=== PATIENT | female | born 2000 | race Caucasian/White ===

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

== ENCOUNTER 2020-03-10 17:22 | Emergency (ER) | payer OTHER ==
[2020-03-10] MEDS ORDERED: Lidocaine 1% 10 ML MDV INJECT ONE (17:47)
--- NOTE | 2020-03-10 18:02 | EDM.PDOC ---
ED HPI GENERAL MEDICAL PROBLEM - General Chief Complaint: Laceration Stated Complaint: LEFT HAND FINGER LAC Time Seen by Provider: 03/10/20 17:40 Source of Information: Reports: Patient History Limitations: Reports: No Limitations - History of Present Illness INITIAL COMMENTS - FREE TEXT/NARRATIVE: The patient presents with a laceration to her left index finger. She was cuttin g onions and cut her finger. She is right handed. Her tetanus is up to date. Onset: Sudden Duration: Minutes: Location: Reports: Upper Extremity, Left (index finger) Quality: Reports: Sharp Severity: Mild Improves with: Reports: None Worsens with: Reports: None Associated Symptoms: Reports: No Other Symptoms - Related Data Allergies Allergy/AdvReac Type Severity Reaction Status Date / Time No Known Allergies Allergy Verified 03/10/20 17:36 Home Meds: Home Meds . [No Known Home Meds] 03/10/20 [History] Past Medical History - Past Health History Medical/Surgical History: Denies Medical/Surgical History Other HEENT History: Was treated with 5 days of prednisone orally for a pharyngitis last week apparently she had significant tonsillitis with negative strep screen. 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: Social & Family History - Family History Family Medical History: No Pertinent Family History - Tobacco Use Tobacco Use Status *Q: Never Tobacco User - Recreational Drug Use Recreational Drug Use: No - Living Situation & Occupation Living situation: Reports: with Family Occupation: Student ED ROS GENERAL - Review of Systems Review Of Systems: See Below Constitutional: Reports: No Symptoms HEENT: Reports: No Symptoms Respiratory: Reports: No Symptoms Cardiovascular: Reports: No Symptoms Endocrine: Reports: No Symptoms GI/Abdominal: Reports: No Symptoms : Reports: No Symptoms Musculoskeletal: Reports: Other (Laceration left index finger) ED EXAM, SKIN/RASH Exam: See Below Exam Limited By: No Limitations General Appearance: Alert, No Apparent Distress Ears: Normal External Exam Nose: Normal Inspection Head: Atraumatic, Normocephalic Neck: Normal Inspection Respiratory/Chest: No Respiratory Distress Extremities: Other (3cm eliptical laceration to the side of the left index finger.) ED SKIN PROCEDURES - Laceration/Wound Repair Left Digit - 2nd (Index) Appearance: Subcutaneous, Irregular, Clean Distal NVT: Neuro & Vascular Intact, No Tendon Injury Anesthetic Type: Local Local Anesthesia - Lidocaine (Xylocaine): 1% Plain Skin Prep: Saline Exploration/Debridement/Repair: Wound Explored, In a Bloodless Field, Explored to Base Closed with: Sutures Lac/Wound length In cm: 3 Suture Size: 4-0 # of Sutures: 3 Suture Type: Nylon, Interrupted, Simple Tetanus Status Addressed: Yes Complications: No Course - Vital Signs Last Recorded V/S: Last Vital Signs Temp 98.1 F 03/10/20 17:37 Pulse 74 03/10/20 17:37 Resp 16 03/10/20 17:37 BP 124/74 03/10/20 17:37 Pulse Ox 98 03/10/20 17:37 - Orders/Labs/Meds Meds: Medications Discontinued Medications Generic Name Dose Route Start Last Admin Trade Name Robinson PRN Reason Stop Dose Admin Lidocaine HCl 10 ml 03/10/20 17:47 Xylocaine 1% INJECT 03/10/20 17:48 ONETIME ONE - Re-Assessments/Exams Free Text/Narrative Re-Assessment/Exam: 03/10/20 18:03 I sutured the laceration. Departure - Departure Time of Disposition: 18:05 Disposition: Home, Self-Care 01 Condition: Good Clinical Impression: Laceration of left index finger Qualifiers: Encounter type: initial encounter Damage to nail status: without damage Foreign body presence: without foreign body Qualified Code(s): S61.211A - Laceration without foreign body of left index finger without damage to nail, initial encounter - Discharge Information *PRESCRIPTION DRUG MONITORING PROGRAM REVIEWED*: Not Applicable *COPY OF PRESCRIPTION DRUG MONITORING REPORT IN PATIENT ELANA: Not Applicable Referrals: PCP,None [Primary Care Provider] - Additional Instructions: Soak your finger in warm soapy water 2 times per day and apply antibiotic ointment after. Have the sutures removed within a week. Look for any signs of infection such as redness, swelling, pain or drainage. If you see any of these signs please return or see your doctor. You may need oral antibiotics. Sepsis Event Note (ED) - Evaluation Sepsis Screening Result: No Definite Risk - Focused Exam Vital Signs: Vital Signs Temp Pulse Resp BP Pulse Ox 03/10/20 17:37 98.1 F 74 16 124/74 98
== END 2020-03-10 18:10 | disposition home or self-care (01) ==
LOC: JD.ED 17:22
DX: S61.211A Laceration without foreign body of left index finger without damage to nail, initial encounter (principal); W26.0XXA Contact with knife, initial encounter
CPT/HCPCS: 12002; 99282; J2001

== ENCOUNTER 2020-07-29 06:57 | Inpatient (IN) | payer BC ==
--- NOTE | 2020-07-29 19:41 | PCM.LDHP ---
L&D History of Present Illness - General Date of Service: 07/30/20 Admit Problem/Dx: Admission Diagnosis/Problem Admission Diagnosis/Problem 07/29/20 19:28 Vicki amaro is a 20-year-old 1 para 0 white female who is to be admitted on the early a.m. of 07/30/2020 at 37-1/7 weeks gestational age with an BECKI of 08/19/2020 for a medical induction of labor for a significant size less than dates discrepancy. Source of Information: Patient History Limitations: Reports: No Limitations - History of Present Illness Introduction:: Vicki amaro is a 20-year-old 1 para 0 white female who is to be admitted on the early a.m. of 07/30/2020 at 37-1/7 weeks gestational age with an BECKI of 08/19/2020 for a medical induction of labor for a significant size less than dates discrepancy. The medical condition of size less than dates discrepancy is well-known to the patient and has been discussed on many occasions with the patient by Dr. Tate her MFM and myself. The process of induction of labor, its risks, benefits and the timing of the induction are discussed in labor in view of her diagnosis. She appears to understand and wishes to proceed. 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 Patient had menarche at age 13. Cycles are regular with her last definite period started 11/05/2019 with the patient on no control at the time of conception. Cycles are regular on a q. monthly basis. Patient has not had a Pap smear prior to this. She denies any STIs. course: Patient is BECKI of 08/19/2020 is set by an ultrasound done on 01/02/2020 at 7-1/7 weeks gestational age. Subchorionic hematoma was noted at that time patient was evaluated with multiple ultrasounds throughout the course of the and evaluation of her size less than dates discrepancy. In general they showed A baby at less than dates and size but with relatively normal growth interval. Last ultrasound performed showed growth at less than 3rd percentile and biophysical profile was done on q. 1-2 times per week basis showed scores of 8/8. Patient was seen on a very frequent basis by both her MFM Dr. Tate and myself. She had a prequel noninvasive screen performed which returned negative. Her group B strep screen is negative. Recommended date of induction is between 37 and 38 weeks. She has a history of hypothyroidism which did not affect her . Follow-up TSH on 06/21/2020 was normal. She has had some depression during and has been on sertraline during the course of her latter part of the . Weight gain during the course of the was from 129 to 154.7 pounds. Vital signs are stable. Fundal height growth was lagging as was supported by her ultrasound showing a size less than dates discrepancy. Vicki had her Tdap on 06/21/2020. She is rubella immune. Varicella titer showed immunity. Hepatitis B immunization occurred in 2004. Hepatitis A in 2018. HPV in 2019. She had her pneumococcal immunizations in 2000 and her meningococcal immunizations in 2018. Laboratory testing in shows her blood to be all positive with a negative antibody screen. First labs showed a hemoglobin of 12.2 g/dL. Platelets are 223,000. She is rubella and varicella immune. RPR is nonreactive. Urine culture was unremarkable. Hepatitis B surface antigen and HIV assays were both negative. Gonorrhea and Chlamydia were both negative. Her TSH on 01/15/2020 was mildly elevated at 4.82 mg/mL. Second trimester labs showed a hemoglobin 12.0 g/dL and platelets at 236,000. Her 1 hour GTT was normal at 110. Follow-up he is done on 06/21/2020 were normal with a free T4 of 0.92 and a TSH of 2.104. Group B strep screen was negative. RPR 05/17/2020 was negative. Allergies: None Medications: 1. vitamins 1 daily 2. Sertraline 50 mg p.o. daily Past medical history: Unremarkable Past surgical history: Unremarkable Family history: Mother is alive and well as is her father. Paternal grandfather is alive and well as is paternal grandmother. Maternal grandfather is alive and well. Maternal grandmother has multiple comorbidities but patient did not know details concerning these. She has 2 younger brothers who are both healthy. No anesthesia, bleeding, blood clotting problems noted in the family. Review of systems: In general patient has no complaints. She has reported good activity. No significant contractions noted. Skin: Negative Lungs: No infectious symptoms or shortness of breath Cardiovascular: No chest pain or exercise intolerance Breasts: No lumps, changes in size, pain, dimpling, discharge or axillary or supraclavicular concerns. changes noted. GI: Negative : changes noted. Musculoskeletal: Negative Neurological: Negative Physical exam: In general the patient is well-developed, well-nourished, pleasant female of stated age in no acute distress. On last evaluation clinic patient's weight was 154.7. Height is 5 feet 5. Prepregnancy body mass index is 20. Prepregnancy weight was 129. Skin is warm dry without lesions. HEENT, neck and back within normal limits. Lungs are clear with good breath sounds in all lung sloan. Cardiovascular exam shows regular and rhythm without murmurs. Breast exam done at first visit was found to be normal and is not repeated at this time. Abdomen is gravid with last fundal height at 32.5 cm. Baby in a vertex presentation by Kole maneuvers. Genital exam shows cervix to be closed, firm, -3 station and posterior.. Extremities and neurological exam are grossly within normal limits. - Related Data Allergies/Adverse Reactions: Allergies Allergy/AdvReac Type Severity Reaction Status Date / Time No Known Allergies Allergy Verified 05/21/20 19:31 Home Medications: Home Meds Vits #93/Iron Fum/FA [ Formula Tablet] 1 05/21/20 [History] Sertraline [Zoloft] 50 mg PO BEDTIME 05/21/20 [History] Past Medical History - Past Health History Medical/Surgical History: Denies Medical/Surgical History Other HEENT History: Was treated with 5 days of prednisone orally for a pharyngitis last week apparently she had significant tonsillitis with negative strep screen. 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: Social & Family History - Family History Family Medical History: No Pertinent Family History - Living Situation & Occupation Living situation: Reports: with Family Occupation: Student H&P Review of Systems - Review of Systems: Review Of Systems: See Below L&D Exam - Exam Exam: See Below - Problem List (1) Size of fetus inconsistent with dates in third trimester SNOMED Code(s): 197754408, 137892297 ICD Code: O26.843 - UTERINE SIZE-DATE DISCREPANCY, THIRD TRIMESTER Status: Acute (2) 37 weeks gestation of SNOMED Code(s): 56452407 ICD Code: Z3A.37 - 37 WEEKS GESTATION OF Status: Acute Problem List Initiated/Reviewed/Updated: Yes Assessment/Plan Comment:: 1.Vicki amaro is a 20-year-old 1 para 0 white female who is to be admitted on the early a.m. of 07/30/2020 at 37-1/7 weeks gestational age with an BECKI of 08/19/2020 for a medical induction of labor for a significant size less than dates discrepancy. 2. Group B strep screen negative 3. Patient plans to attempt breast-feeding. 4. Depression history patient on sertraline and doing well. 5. Patient up-to-date regarding her immunizations. She is rubella immune. RPR is nonreactive. Tdap up-to-date. 6. Patient is okay with analgesia and labor, specifically epidural. . Patient has O+ blood Plan: 1. Medical induction of labor for size significantly less than dates discrepancy. The procedure, risk, benefits, possible inability of the baby to tolerate the stress of labor because of size less than grates discrepancy all discussed with patient. She appears understand and wishes to proceed. 2. Near continuous electronic monitoring during labor 3. Epidural as needed for pain control 4. Support breast-feeding decision 5. Pediatrics has been informed of the induction. 6. Routine admission labs including Covid19, CBC, RPR.
[2020-07-30] MEDS ORDERED: Nalbuphine 10 MG/1 ML Vial IVPUSH PRN (00:17)
[2020-07-30] MEDS ORDERED: Ondansetron 4 MG/2 ML SDV IVPUSH PRN (00:17)
[2020-07-30] MEDS ORDERED: Sodium Chloride 0.9% 10 ML Syringe FLUSH PRN (00:17)
[2020-07-30] MEDS ORDERED: Oxytocin/Lactated Ringers 10 UNIT/1,000 ML BAG IV SCH ×2 (00:30)
[2020-07-30] MEDS: Lactated Ringers 1,000 ML IV SCH ×6 (00:43→21:03)
[2020-07-30] MEDS ORDERED: diphenhydrAMINE 50 MG/ML SDV IVPUSH PRN (07:27)
[2020-07-30] MEDS ORDERED: fentaNYL 100 MCG/2 ML SDV EPIDUR PRN (07:27)
[2020-07-30] MEDS ORDERED: ePHEDrine 50 MG/ML SDV IVPUSH PRN (07:27)
[2020-07-30] MEDS: Oxytocin/Lactated Ringers 20 UNIT/1,000 ML BAG IV SCH (15:15)
--- NOTE | 2020-07-30 19:26 | PCM.PREANE ---
Preanesthetic Assessment - Procedure Proposed Procedure: mike - Anesthesia/Transfusion/Family Hx Anesthesia History: No Prior Anesthesia Family History of Anesthesia Reaction: No Transfusion History: No Prior Transfusion(s) - Review of Systems General: No Symptoms Pulmonary: No Symptoms Cardiovascular: No Symptoms Gastrointestinal: No Symptoms Neurological: No Symptoms Other: Reports: Depression - Physical Assessment Vital Signs: Last Vital Signs Temp 98.8 F 07/30/20 00:15 Pulse 80 07/30/20 00:15 Resp 16 07/30/20 00:15 BP 126/74 07/30/20 00:15 Pulse Ox 100 07/30/20 00:15 Height: 5 ft 6 in Weight: 69.944 kg ASA Class: 2 Mental Status: Alert & Oriented x3 Airway Class: Mallampati = 1 Dentition: Reports: Normal Dentition Thyro-Mental Finger Breadths: 3 Mouth Opening Finger Breadths: 3 ROM/Head Extension: Full Lungs: Clear to Auscultation, Normal Respiratory Effort Cardiovascular: Regular Rate, Regular Rhythm - Lab Values: Laboratory Last Values WBC 10.59 K/mm3 (3.98-10.04) H 07/30/20 00:30 RBC 3.68 M/mm3 (3.98-5.22) L 07/30/20 00:30 Hgb 11.8 gm/dl (11.2-15.7) 07/30/20 00:30 Hct 34.6 % (34.1-44.9) 07/30/20 00:30 MCV 94.0 fl (79.4-94.8) 07/30/20 00:30 MCH 32.1 pg (25.6-32.2) 07/30/20 00:30 MCHC 34.1 g/dl (32.2-35.5) 07/30/20 00:30 RDW Std Deviation 40.9 fL (36.4-46.3) 07/30/20 00:30 Plt Count 206 K/mm3 (182-369) 07/30/20 00:30 MPV 10.3 fl (9.4-12.3) 07/30/20 00:30 Neut % (Auto) 73.2 % (34.0-71.1) H 07/30/20 00:30 Lymph % (Auto) 17.8 % (19.3-51.7) L 07/30/20 00:30 Collier % (Auto) 7.8 % (4.7-12.5) 07/30/20 00:30 Eos % (Auto) 0.7 (0.7-5.8) 07/30/20 00:30 Baso % (Auto) 0.2 % (0.1-1.2) 07/30/20 00:30 Neut # (Auto) 7.75 K/mm3 (1.56-6.13) H 07/30/20 00:30 Lymph # (Auto) 1.89 K/mm3 (1.18-3.74) 07/30/20 00:30 Collier # (Auto) 0.83 K/mm3 (0.24-0.36) H 07/30/20 00:30 Eos # (Auto) 0.07 K/mm3 (0.04-0.36) 07/30/20 00:30 Baso # (Auto) 0.02 K/mm3 (0.01-0.08) 07/30/20 00:30 SARS-CoV-2 RNA (YVONNE) Negative (NEGATIVE) 07/30/20 00:17 - Allergies Allergies/Adverse Reactions: Allergies Allergy/AdvReac Type Severity Reaction Status Date / Time No Known Allergies Allergy Verified 05/21/20 19:31 - Acknowledgements Anesthesia Type Planned: Epidural Pt an Appropriate Candidate for the Planned Anesthesia: Yes Alternatives and Risks of Anesthesia Discussed w Pt/Guardian: Yes Pt/Guardian Understands and Agrees with Anesthesia Plan: Yes PreAnesthesia Questionnaire - Past Health History Medical/Surgical History: Denies Medical/Surgical History Other HEENT History: Was treated with 5 days of prednisone orally for a pharyngitis last week apparently she had significant tonsillitis with negative strep screen. 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: : 1 Para: 0 Musculoskeletal History: Reports: None Psychiatric History: Reports: Depression Oncologic (Cancer) History: Reports: None - SUBSTANCE USE Tobacco Use Status *Q: Never Tobacco User Tobacco Use Within Last Twelve Months: No Second Hand Smoke Exposure: No Days Per Week of Alcohol Use: 0 Recreational Drug Use History: No - HOME MEDS Home Medications: Home Meds Vits #93/Iron Fum/FA [ Formula Tablet] 1 tab PO DAILY 02/09/21 [History] Sertraline [Zoloft] 50 mg PO BEDTIME 05/21/20 [History] - CURRENT (IN HOUSE) MEDS Current Meds: Current Medications Diphenhydramine HCl (Diphenhydramine 50 Mg/Ml Sdv) 25 mg IVPUSH Q6H PRN PRN Reason: pruritis Ephedrine Sulfate (Ephedrine 50 Mg/Ml Sdv) 5 mg IVPUSH ASDIRECTED PRN PRN Reason: Hypotension Fentanyl (Fentanyl 100 Mcg/2 Ml Sdv) 100 mcg EPIDUR Q3H PRN PRN Reason: Pain Fentanyl/Bupivacaine HCl (Bupivacaine/Fentanyl/Ns 100 Ml Bag) 100 ml EPIDUR ASDIRECTED PRN PRN Reason: Pain Oxytocin/Lactated Ringer's (Pitocin In Lr 10 Units/1,000 Ml) 10 unit in 1,000 mls @ 12 mls/hr IV TITRATE DALJIT; Protocol Last Titration: 07/30/20 14:09 Dose: 20 munits/min, 120 mls/hr Documented by: Oxytocin/Lactated Ringer's (Pitocin In Lr 10 Units/1,000 Ml) 10 unit in 1,000 mls @ 500 mls/hr IV .CONTINUOUS DALJIT Lactated Ringer's (Ringers, Lactated) 1,000 mls @ 100 mls/hr IV ASDIRECTED DALJIT Last Admin: 07/30/20 18:34 Dose: 100 mls/hr Documented by: Oxytocin/Lactated Ringer's (Pitocin In Lr 20 Units/1,000 Ml) 20 unit in 1,000 mls @ 60 mls/hr IV TITRATE DALJIT; Protocol Last Admin: 07/30/20 15:15 Dose: 60 mls/hr Documented by: Nalbuphine HCl (Nalbuphine 10 Mg/1 Ml Vial) 10 mg IVPUSH Q2H PRN PRN Reason: Pain Ondansetron HCl (Ondansetron 4 Mg/2 Ml Sdv) 4 mg IVPUSH Q4H PRN PRN Reason: Nausea/Vomiting Sodium Chloride (Sodium Chloride 0.9% 10 Ml Syringe) 10 ml FLUSH ASDIRECTED PRN PRN Reason: Keep Vein Open
[2020-07-30] MEDS: Bupivacaine/fentaNYL/NS 100 ML Bag EPIDUR PRN (19:30)
[2020-07-30] MEDS ORDERED: Ondansetron 4 MG/2 ML SDV ONE (19:51)
[2020-07-31] MEDS ORDERED: Bupivacaine 0.25% 10 ML SDV ONE
--- NOTE | 2020-07-31 03:06 | PCM.SN.2 ---
- Free Text/Narrative Note: Labor progress note: Vicki is laboring well. She is making slow progress. Cervix now is 4 cm, 90% effaced, -1 station, soft, mid position. Pitocin is at 26 milliunits/mL. heart tones are reassuring. Her vital signs are stable. Patient is comfortable with an epidural on board providing adequate analgesia. Continues to have a small amount of amniotic fluid is clear in nature. Assessment: Slow but steady progression of labor. heart tones reassuring. Plan: Continue with labor as at present. Will optimize labor pattern with Pitocin. Monitor closely.
[2020-07-31] MEDS: Lactated Ringers 1,000 ML IV SCH (04:24)
[2020-07-31] MEDS: Oxytocin/Lactated Ringers 20 UNIT/1,000 ML BAG IV SCH (04:26)
[2020-07-31] MEDS: Bupivacaine/fentaNYL/NS 100 ML Bag EPIDUR PRN (05:10)
--- NOTE | 2020-07-31 07:37 | PCM.SN.2 ---
- Free Text/Narrative Note: Delivery note: Stage I: Vicki amaro is a 20-year-old 1 para 0 white female who is to be admitted on the early a.m. of 07/30/2020 at 37-1/7 weeks gestational age with an BECKI of 08/19/2020 for a medical induction of labor for a significant size less than dates discrepancy. The medical condition of size less than dates discrepancy has been followed by myself and by Dr. Tate her M. The patient was admitted after midnight on 07/30/2020. Induction was started with Pitocin and was continued throughout the course of the day. Steady progress throughout the day. She underwent AROM after dilation to 2 cm. Clear fluid resulted. She had an epidural placed for labor analgesia with good results. She progressed steadily to complete cervical dilation by approximately 0645 hrs. on 07/31/2020. She pushed for very short period of time. Stage II: She delivered a viable, wilkinson, female named Dena Andre. Mansoor delivered in a direct occiput anterior position at 0657 hrs on 07/31/2020. Nuchal cord was noted and was reduced over the baby's head. With gentle downward traction of the front shoulder delivered and the remainder of the baby delivered without any problems. Baby was placed on mom's abdomen and dried with a warm blanket. Nose and mouth were bulb suction. The umbilical cord is allowed to pulsate for approximately 3 minutes. The baby weighed 2080 g (4 pounds 9.4 ounces), had Apgars of 8 and 9 and a length of 18.0 inches. Pitocin was solution in routine concentration of 10 units/L was increased to 500 cc per hour to facilitate increase in uterine tone and decrease likelihood of uterine bleeding. It was noted that the patient had a first-degree vaginal laceration slight slight extension to the right. She also had some abrasions in the upper part of the vagina laterally and on the right side of the right labia minora. The only lacerations requiring suturing was the vaginal slight perineal laceration which was repaired with 3-0 Monocryl in a routine fashion. Patient tolerated this well. Labor epidural analgesia was used for laceration repair anesthesia. Cord blood was obtained. Stage III: The placenta delivered at 0705 hrs in a Schultze presentation. It was small, appeared intact and complete and was discarded per patient desire. There were 3 vessels in the umbilical cord. Estimated blood loss was 150 cc. Patient plans to breast-feed. Condition: Good.
[2020-07-31] MEDS ORDERED: Docusate Sodium 100 MG Cap PO PRN (08:04)
[2020-07-31] MEDS ORDERED: Witch Hazel Medicated Pads 40/Jar TOP PRN (08:04)
[2020-07-31] MEDS ORDERED: Benzocaine/Menthol 20%-0.5% Spray 56 GM Canister TOP PRN (08:04)
[2020-07-31] MEDS ORDERED: Acetaminophen 325 MG Tab PO PRN (08:04)
--- NOTE | 2020-07-31 12:01 | PCM48HPAN ---
Post Anesthesia Note - EVALUATION WITHIN 48HRS OF ANESTHETIC Vital Signs in Normal Range: Yes Patient Participated in Evaluation: Yes Respiratory Function Stable: Yes Airway Patent: Yes Cardiovascular Function Stable: Yes Hydration Status Stable: Yes Pain Control Satisfactory: Yes Nausea and Vomiting Control Satisfactory: Yes Mental Status Recovered: Yes Vital Signs: Last Vital Signs Temp 37.1 C 07/30/20 00:15 Pulse 80 07/30/20 00:15 Resp 16 07/30/20 00:15 BP 126/74 07/30/20 00:15 Pulse Ox 100 07/30/20 00:15
[2020-07-31] MEDS: Ibuprofen 600 MG Tab PO PRN (13:04)
[2020-07-31] MEDS: Prenatal Multivitamin with Calcium/Folic Acid/Iron Tab PO SCH (15:39)
[2020-07-31] MEDS: Sertraline 50 MG Tab PO SCH (21:20)
[2020-08-01] MEDS: Prenatal Multivitamin with Calcium/Folic Acid/Iron Tab PO SCH (08:45)
--- NOTE | 2020-08-01 10:57 | PCM.SN.2 ---
- Free Text/Narrative Note: note: day #1. Patient is doing well in the period. Minimal lochia, voiding well, am bulated without problems. Nursing without concerns. Patient is afebrile, vital signs are stable. Nursing is going well. Abdomen is flat, soft, uterus is below the umbilicus and is firm and nontender. Legs are nontender. Assessment: recovery going well. Plan: Routine care. Patient be discharged home within the next 24-48 hours.
[2020-08-01] MEDS: Ibuprofen 600 MG Tab PO PRN (15:36)
[2020-08-02] MEDS: Sertraline 50 MG Tab PO SCH (01:54)
--- NOTE | 2020-08-02 08:51 | PCM.DCSUM1 ---
Discharge Summary - Hospital Course Free Text/Narrative:: [facility] Provider Simple Note Patient Name: LASHELL HAYWOOD Date of : 00 Patient Status: Inpatient Attending Provider: Magdiel Olson Date: 07/31/20 07:31 Initialization Date: 07/31/20 07:31 - Free Text/Narrative Note: Delivery note: Stage I: Lashell amaro is a 20-year-old 1 para 0 white female who is to be admitted on the early a.m. of 07/30/2020 at 37-1/7 weeks gestational age with an BECKI of 08/19/2020 for a medical induction of labor for a significant size less than date s discrepancy. The medical condition of size less than dates discrepancy has been followed by myself and by Dr. Tate her M. The patient was admitted after midnight on 07/30/2020. Induction was started with Pitocin and was continued throughout the course of the day. Steady progress throughout the day. She underwent AROM after dilation to 2 cm. Clear fluid resulted. She had an epidural placed for labor analgesia with good results. She progressed steadily to complete cervical dilation by approximately 0645 hrs. on 07/31/2020. She pushed for very short period of time. Stage II: She delivered a viable, wilkinson, female named Dena Andre. Mansoor delivered in a direct occiput anterior position at 0657 hrs on 07/31/2020. Nuchal cord was noted and was reduced over the baby's head. With gentle downward traction of the front shoulder delivered and the remainder of the baby delivered without any problems. Baby was placed on mom's abdomen and dried with a warm blanket. Nose and mouth were bulb suction. The umbilical cord is allowed to pulsate for approximately 3 minutes. The baby weighed 2080 g (4 pounds 9.4 ounces), had Apgars of 8 and 9 and a length of 18.0 inches. Pitocin was solution in routine concentration of 10 units/L was increased to 500 cc per hour to facilitate increase in uterine tone and decrease likelihood of uterine bleeding. It was noted that the patient had a first-degree vaginal laceration slight slight extension to the right. She also had some abrasions in the upper part of the vagina laterally and on the right side of the right labia minora. The only lacerations requiring suturing was the vaginal slight perineal laceration which was repaired with 3-0 Monocryl in a routine fashion. Patient tolerated this well. Labor epidural analgesia was used for laceration repair anesthesia. Cord blood was obtained. Stage III: The placenta delivered at 0705 hrs in a Schultze presentation. It was small, appeared intact and complete and was discarded per patient desire. There were 3 vessels in the umbilical cord. Estimated blood loss was 150 cc. Patient plans to breast-feed. Condition: Good. HPI Initial Comments: [facility] Provider Simple Note Patient Name: LASHELL HAYWOOD Date of : 00 Patient Status: Inpatient Attending Provider: Magdiel Olson Date: 07/31/20 07:31 Initialization Date: 07/31/20 07:31 - Free Text/Narrative Note: Delivery note: Stage I: Lashell amaro is a 20-year-old 1 para 0 white female who is to be admitted on the early a.m. of 07/30/2020 at 37-1/7 weeks gestational age with an BECKI of 08/19/2020 for a medical induction of labor for a significant size less than dates discrepancy. The medical condition of size less than dates discrepancy has been followed by myself and by Dr. Tate her M. The patient was admitted after midnight on 07/30/2020. Induction was started with Pitocin and was continued throughout the course of the day. Steady progress throughout the day. She underwent AROM after dilation to 2 cm. Clear fluid resulted. She had an epidural placed for labor analgesia with good results. She progressed steadily to complete cervical dilation by approximately 0645 hrs. on 07/31/2020. She pushed for very short period of time. Stage II: She delivered a viable, wilkinson, female infant named Dena Andre. Mansoor delivered in a direct occiput anterior position at 0657 hrs on 07/31/2020. Nuchal cord was noted and was reduced over the baby's head. With gentle downward traction of the front shoulder delivered and the remainder of the baby delivered without any problems. Baby was placed on mom's abdomen and dried with a warm blanket. Nose and mouth were bulb suction. The umbilical cord is allowed to pulsate for approximately 3 minutes. The baby weighed 2080 g (4 pounds 9.4 ounces), had Apgars of 8 and 9 and a length of 18.0 inches. Pitocin was solution in routine concentration of 10 units/L was increased to 500 cc per hour to facilitate increase in uterine tone and decrease likelihood of uterine bleeding. It was noted that the patient had a first-degree vaginal laceration slight slight extension to the right. She also had some abrasions in the upper part of the vagina laterally and on the right side of the right labia minora. The only lacerations requiring suturing was the vaginal slight perineal laceration which was repaired with 3-0 Monocryl in a routine fashion. Patient tolerated this well. Labor epidural analgesia was used for laceration repair anesthesia. Cord blood was obtained. Stage III: The placenta delivered at 0705 hrs in a Schultze presentation. It was small, appeared intact and complete and was discarded per patient desire. There were 3 vessels in the umbilical cord. Estimated blood loss was 150 cc. Patient plans to breast-feed. Condition: Good. Brief History: [facility] . Provider Simple Note. [id number] Date of : 00Patient Status: Inpatient. Attending Provider: Magdiel Olson FAccount Number: [id number]. Date: 07/31/20 07:31Initialization Date: 07/31/20 07:31. - Free Text/Narrative. Note: Delivery note: Stage I: Lashell amaro is a 20-year-old 1 para 0 white female who is to be admitted on the early a.m. of 07/30/2020 at 37-1/7 weeks gestational age with an BECKI of 08/19/2020 for a medical induction of labor for a significant size less than dates discrepancy. The medical condition of size less than dates discrepancy has been followed by myself and by Dr. Tate her MFM. The patient was admitted after midnight on 07/30/2020. Induction was started with Pitocin and was continued throughout the course of the day. Steady progress throughout the day. She underwent AROM after dilation to 2 cm. Clear fluid resulted. She had an epidural placed for labor analgesia with good results. She progressed steadily to complete cervical dilation by approximately 0645 hrs. on 07/31/2020. She pushed for very short period of time. Stage II: She delivered a viable, wilkinson, female infant named Dena Andre. Mansoor delivered in a direct occiput anterior position at 0657 hrs on 07/31/2020. Nuchal cord was noted and was reduced over the baby's head. With gentle downward traction of the front shoulder delivered and the remainder of the baby delivered without any problems. Baby was placed on mom's abdomen and dried with a warm blanket. Nose and mouth were bulb suction. The umbilical cord is allowed to pulsate for approximately 3 minutes. The baby weighed 2080 g (4 pounds 9.4 ounces), had Apgars of 8 and 9 and a length of 18.0 inches. Pitocin was solution in routine concentration of 10 units/L was increased to 500 cc per hour to facilitate increase in uterine tone and decrease likelihood of uterine bleeding. It was noted that the patient had a first- degree vaginal laceration slight slight extension to the right. She also had some abrasions in the upper part of the vagina laterally and on the right side of the right labia minora. The only lacerations requiring suturing was the vaginal slight perineal laceration which was repaired with 3-0 Monocryl in a routine fashion. Patient tolerated this well. Labor epidural analgesia was used for laceration repair anesthesia. Cord blood was obtained. Stage III: The placenta delivered at 0705 hrs in a Schultze presentation. It was small, appeared intact and complete and was discarded per patient desire. There were 3 vessels in the umbilical cord. Estimated blood loss was 150 cc. Patient plans to breast-feed. Condition: Good. Diagnosis: Stroke: No - Discharge Data Discharge Date: 08/02/20 Discharge Disposition: Home, Self-Care 01 Condition: Good - Referral to Home Health Primary Care Physician: Magdiel Olson MD - Discharge Diagnosis/Problem(s) (1) First degree laceration of perineum, delivered, current hospitalization SNOMED Code(s): 783587566, [id number] ICD Code: O70.0 - FIRST DEGREE PERINEAL LACERATION DURING DELIVERY Status: Acute Current Visit: Yes (2) Nuchal cord without compression, delivered, current hospitalization SNOMED Code(s): 97951883, 575700069 ICD Code: O69.81X0 - LABOR AND DEL COMP BY CORD AROUND NECK, W/O COMPRSN, UNSP Status: Acute Current Visit: Yes (3) 37 weeks gestation of SNOMED Code(s): 13959881 ICD Code: Z3A.37 - 37 WEEKS GESTATION OF Status: Acute Current Visit: No - Patient Summary/Data Complications: None Consults: None Hospital Course: Uneventful - Patient Instructions Diet: Usual Diet as Tolerated Driving: Do Not Drive (x48 hrs) Showering/Bathing: May Shower Notify Provider of: Fever, Increased Pain, Swelling and Redness, Drainage, Nausea and/or Vomiting - Discharge Plan *PRESCRIPTION DRUG MONITORING PROGRAM REVIEWED*: Not Applicable *COPY OF PRESCRIPTION DRUG MONITORING REPORT IN PATIENT ELANA: Not Applicable Home Medications: Home Meds Vits #93/Iron Fum/FA [ Formula Tablet] 1 tab PO DAILY 05/21/20 [History] Sertraline [Zoloft] 50 mg PO BEDTIME 05/21/20 [History] Acetaminophen [Tylenol] 650 mg PO Q6H PRN tablet 08/02/20 [Rx] Docusate Sodium [Colace] 100 mg PO BID PRN cap 08/02/20 [Rx] Ibuprofen [Motrin] 600 mg PO Q6H PRN tablet 08/02/20 [Rx] Referrals: Magdiel Olson MD [Primary Care Provider] - (Patient will call to make appointment to see Dr. Olson in 2 weeks) - Discharge Summary/Plan Comment DC Time >30 min.: No - Patient Data Vitals - Most Recent: Last Vital Signs Temp 98.4 F 08/02/20 03:24 Pulse 72 08/02/20 03:24 Resp 17 08/02/20 03:24 BP 134/69 08/02/20 03:24 Pulse Ox 97 08/02/20 03:24 Weight - Most Recent: 154 lb 3.2 oz Med Orders - Current: Current Medications Acetaminophen (Acetaminophen 325 Mg Tab) 650 mg PO Q4H PRN PRN Reason: mild pain or fever Benzocaine/Menthol (Benzocaine/Menthol 20%-0.5% [place] 56 Gm Canister) 0 gm TOP ASDIRECTED PRN PRN Reason: Perineal Comfort Measure Last Admin: 07/31/20 09:00 Dose: 1 can Documented by: Docusate Sodium (Docusate Sodium 100 Mg Cap) 100 mg PO BID PRN PRN Reason: Constipation Last Admin: 08/01/20 08:45 Dose: 100 mg Documented by: Ibuprofen (Ibuprofen 600 Mg Tab) 600 mg PO Q4H PRN PRN Reason: Mild pain or fever Last Admin: 08/01/20 15:36 Dose: 600 mg Documented by: Prenat Multivit/Steward/[facility]/Iron/Folic Ac ( Multivitamin With Calcium/Folic Acid/Iron Tab) 1 each PO DAILY DALJIT Last Admin: 08/01/20 08:45 Dose: 1 each Documented by: Sertraline HCl (Sertraline 50 Mg Tab) 50 mg PO BEDTIME DALJIT Last Admin: 08/02/20 01:54 Dose: Not Given Documented by: Dereck Muniz (Dereck Muniz Medicated Pads 40/Jar) 1 pad TOP ASDIRECTED PRN PRN Reason: Perineal Comfort Measure Last Admin: 07/31/20 09:00 Dose: 1 pad Documented by: Discontinued Medications Bupivacaine HCl (Bupivacaine 0.25% 10 Ml Sdv) 10 ml .ROUTE .STK-MED ONE Stop: 07/31/20 00:01 Diphenhydramine HCl (Diphenhydramine 50 Mg/Ml Sdv) 25 mg IVPUSH Q6H PRN PRN Reason: pruritis Last Admin: 07/31/20 01:51 Dose: 25 mg Documented by: Ephedrine Sulfate (Ephedrine 50 Mg/Ml Sdv) 5 mg IVPUSH ASDIRECTED PRN PRN Reason: Hypotension Fentanyl (Fentanyl 100 Mcg/2 Ml Sdv) 100 mcg EPIDUR Q3H PRN PRN Reason: Pain Last Admin: 07/30/20 19:30 Dose: 100 mcg Documented by: Fentanyl/Bupivacaine HCl (Bupivacaine/Fentanyl/Ns 100 Ml Bag) 100 ml EPIDUR ASDIRECTED PRN PRN Reason: Pain Last Admin: 07/31/20 05:10 Dose: 100 ml Documented by: Oxytocin/Lactated Ringer's (Pitocin In Lr 10 Units/1,000 Ml) 10 unit in 1,000 mls @ 12 mls/hr IV TITRATE DALJIT; Protocol Last Titration: 07/30/20 14:09 Dose: 20 munits/min, 120 mls/hr Documented by: Oxytocin/Lactated Ringer's (Pitocin In Lr 10 Units/1,000 Ml) 10 unit in 1,000 mls @ 500 mls/hr IV .CONTINUOUS DALJIT Lactated Ringer's (Ringers, Lactated) 1,000 mls @ 100 mls/hr IV ASDIRECTED DALJIT Last Admin: 07/31/20 04:24 Dose: 100 mls/hr Documented by: Oxytocin/Lactated Ringer's (Pitocin In Lr 20 Units/1,000 Ml) 20 unit in 1,000 mls @ 60 mls/hr IV TITRATE DALJIT; Protocol Last Admin: 07/31/20 04:26 Dose: 60 mls/hr Documented by: Nalbuphine HCl (Nalbuphine 10 Mg/1 Ml Vial) 10 mg IVPUSH Q2H PRN PRN Reason: Pain Ondansetron HCl (Ondansetron 4 Mg/2 Ml Sdv) 4 mg IVPUSH Q4H PRN PRN Reason: Nausea/Vomiting Ondansetron HCl (Ondansetron 4 Mg/2 Ml Sdv) Confirm Administered Dose 4 mg .ROUTE .Disconnect-MED ONE Stop: 07/30/20 19:52 Last Admin: 07/31/20 08:18 Dose: Not Given Documented by: Sodium Chloride (Sodium Chloride 0.9% 10 Ml Syringe) 10 ml FLUSH ASDIRECTED PRN PRN Reason: Keep Vein Open
[2020-08-02] MEDS: Prenatal Multivitamin with Calcium/Folic Acid/Iron Tab PO SCH (10:44)
== END 2020-08-02 12:30 | disposition home or self-care (01) | DRG 560 ==
LOC: JD.OB 06:57 → OBSVTOIN 07-31 06:57 → JD.OB 07-31 06:58
PROVIDERS: ADMIT Obstetrics & Gynecology; ATTEND Obstetrics & Gynecology
PROC: 10E0XZZ Delivery of Products of Conception, External Approach (ICD-10-PCS; principal; 2020-07-31)
PROC: 10907ZC Drainage of Amniotic Fluid, Therapeutic from Products of Conception, Via Natural or Artificial Opening (ICD-10-PCS; 2020-07-31)
PROC: 3E033VJ Introduction of Other Hormone into Peripheral Vein, Percutaneous Approach (ICD-10-PCS; 2020-07-31)
PROC: 0HQ9XZZ Repair Perineum Skin, External Approach (ICD-10-PCS; 2020-07-31)
DX: O26.843 Uterine size-date discrepancy, third trimester (principal); O69.81X0 Labor and delivery complicated by cord around neck, without compression, not applicable or unspecified; Z37.0 Single live birth; O70.0 First degree perineal laceration during delivery; Z20.822 Contact with and (suspected) exposure to COVID-19; Z3A.37 37 weeks gestation of pregnancy
CPT/HCPCS: 01967; 36415; 51702; 59025; 59409; 85025; 86592; A9270-GY; J1200; J2590; J3010; J3490; J7120; U0002

== ENCOUNTER 2023-05-17 00:39 | Emergency (ER) | payer OTHER ==
[2023-05-17 02:43] LABS: A/G RATIO 0.9 (1-2); ALBUMIN 3.5 g/dl (3.4-5.0); BILIRUBIN TOTAL 1.1 mg/dL (0.2-1.0); BUN/CREATININE RATIO 10.9 (14-18); CREATININE 1.1 mg/dL (0.55-1.02); EST CRCL DRUG DOSING (CG) 74.46 mL/min; PROTEIN TOTAL,TP 7.3 g/dl (6.4-8.2); TSH 3.754 uIU/mL (0.358-3.74)
[2023-05-17] MEDS: LORazepam 1 MG Tab PO ONE (02:48)
== END 2023-05-17 02:49 | disposition home or self-care (01) ==
LOC: JD.ED 00:39
DX: T40.5X5A Adverse effect of cocaine, initial encounter (principal); R00.2 Palpitations; R07.89 Other chest pain
CPT/HCPCS: 36415; 71045; 80053; 84443; 84484; 93005; 99285; A9270; 93010; 99284

== ENCOUNTER 2023-12-25 11:49 | Emergency (ER) | payer BC, OTHER ==
[2023-12-25] MEDS: Naproxen 500 MG Tab PO ONE (12:42)
== END 2023-12-25 12:43 | disposition home or self-care (01) ==
LOC: JD.ED 11:49
DX: S09.90XA Unspecified injury of head, initial encounter (principal); S00.33XA Contusion of nose, initial encounter; Y04.8XXA Assault by other bodily force, initial encounter
CPT/HCPCS: 99283; A9270

== ENCOUNTER 2024-01-09 12:40 | Emergency (ER) | payer BC | END 2024-01-09 14:15 | disposition home or self-care (01) | LOC: JD.ED 12:40 | DX: S06.0X0A Concussion without loss of consciousness, initial encounter (principal); F17.210 Nicotine dependence, cigarettes, uncomplicated; Z79.899 Other long term (current) drug therapy; Y04.2XXA Assault by strike against or bumped into by another person, initial encounter | CPT/HCPCS: 70450; 70450-26; 99284-25 ==